=== PATIENT | female | born 1960 | race Caucasian/White ===

== ENCOUNTER 2019-08-26 08:52 | Inpatient (IN) ==
[2019-08-26] MEDS: SODIUM CHLORIDE 0.9% 1,000 ML IV SCH ×2 (11:24→20:06)
[2019-08-26] MEDS ORDERED: ENOXAPARIN 40 MG/0.4 ML SYRINGE SUBCUT SCH (11:30)
[2019-08-26] MEDS ORDERED: SODIUM CHLORIDE 0.9% 1,000 ML IV ONE (11:39)
[2019-08-26 11:48] LABS: Basophils # 0.1 10*3/uL (0.0-0.2); Basophils % 0.2 % (0.0-0.8); Hematocrit 32.5 VOL% (35.7-47.0); Hemoglobin 10.8 GM/DL (12.0-16.0); Immature Granulocytes % 1.7 %; Immature Granulocytes Absolute 0.41 #; Lymphocytes # 0.5 10*3/uL (1.4-4.0); Lymphocytes % 2.2 % (21.3-54.2); Mean Corpuscular HGB Conc 33.2 GM/DL (32-36); Mean Corpuscular Volume 92.9 FL (87-102); Mean Platelet Volume 11.3 FL (9.6-12.0); Monocytes % 5.6 % (1.7-12.7); Neutrophils % 90.3 % (38.7-73.9); Platelet Count 155 T/CUMM (130-400); Red Cell Distribution Width 12.4 % (9.3-17.3); White Blood Count 24.3 T/CUMM (4-12)
[2019-08-26 12:08] LABS: Band Neutrophils 9 % (0-10); Lymphocytes 5 % (20-55); Platelet Estimate Adequate; Polychromasia Slight; Segmented Neutrophils 83 % (50-85); Total Cells Counted 100
[2019-08-26 12:21] LABS: Calcium 7.8 MG/DL (8.5-10.1)
[2019-08-26] MEDS ORDERED: NOREPINEPHRINE 8 MG in SODIUM CHLORIDE 0.9% 242 ML IV PRN (14:32)
[2019-08-26] MEDS ORDERED: GENTAMICIN INJ 160 MG in SODIUM CHLORIDE 0.9% 100 ML IV ONE (14:54)
[2019-08-26] MEDS: ACETAMINOPHEN 325 MG TABLET PO PRN (20:04)
[2019-08-26] MEDS: ONDANSETRON 4 MG/2 ML VIAL IV PRN (20:32)
[2019-08-27] MEDS: SODIUM CHLORIDE 0.9% 1,000 ML IV SCH ×3 (03:11→20:19)
[2019-08-27 04:06] LABS: Basophils % 0.2 % (0.0-0.8); Eosinophils # 0.1 10*3/uL (0.0-0.87); Eosinophils % 0.3 % (0.00-10.9); Hematocrit 32.9 VOL% (35.7-47.0); Hemoglobin 10.8 GM/DL (12.0-16.0); Immature Granulocytes % 0.9 %; Immature Granulocytes Absolute 0.16 #; Lymphocytes % 5.8 % (21.3-54.2); Mean Corpuscular HGB Conc 32.8 GM/DL (32-36); Mean Corpuscular Volume 93.7 FL (87-102); Mean Platelet Volume 12.2 FL (9.6-12.0); Monocytes % 6.1 % (1.7-12.7); Neutrophils % 86.7 % (38.7-73.9); Platelet Count 123 T/CUMM (130-400); Red Blood Count 3.51 MC/CUMM (3.8-5.5); Red Cell Distribution Width 12.6 % (9.3-17.3); White Blood Count 17.9 T/CUMM (4-12)
[2019-08-27 04:26] LABS: Calcium 7.7 MG/DL (8.5-10.1); Osmolality,Calculated 289.8 MOS/KG (273-304)
[2019-08-27] MEDS: cefTRIAXone 1,000 MG in SYRINGE 1 EACH IV SCH (06:20)
[2019-08-27] MEDS: ONDANSETRON 4 MG/2 ML VIAL IV PRN ×3 (07:08→22:57)
[2019-08-27] MEDS: MORPHINE 4 MG/1 ML VIAL IV PRN ×3 (07:26→22:57)
[2019-08-27] MEDS: METOCLOPRAMIDE 10 MG/2 ML VIAL IV PRN ×2 (07:35→17:10)
[2019-08-27] MEDS: ENOXAPARIN 40 MG/0.4 ML SYRINGE SUBCUT SCH (10:02)
[2019-08-27] MEDS ORDERED: KETOROLAC 30 MG/1 ML VIAL IV ONE (11:19)
[2019-08-28] MEDS: SODIUM CHLORIDE 0.9% 1,000 ML IV SCH ×3 (04:29→23:32)
[2019-08-28] MEDS: ACETAMINOPHEN 325 MG TABLET PO PRN ×2 (04:29→13:18)
[2019-08-28] MEDS: cefTRIAXone 1,000 MG in SYRINGE 1 EACH IV SCH (06:39)
[2019-08-28 06:43] LABS: Calcium 8.2 MG/DL (8.5-10.1); Osmolality,Calculated 282.4 MOS/KG (273-304)
[2019-08-28] MEDS: ENOXAPARIN 40 MG/0.4 ML SYRINGE SUBCUT SCH (08:24)
[2019-08-28] MEDS: MORPHINE 4 MG/1 ML VIAL IV PRN (14:19)
[2019-08-29 04:52] LABS: Basophils % 0.3 % (0.0-0.8); Eosinophils # 0.1 10*3/uL (0.0-0.87); Eosinophils % 0.5 % (0.00-10.9); Hematocrit 29.2 VOL% (35.7-47.0); Hemoglobin 9.9 GM/DL (12.0-16.0); Immature Granulocytes % 1.1 %; Immature Granulocytes Absolute 0.12 #; Lymphocytes # 0.9 10*3/uL (1.4-4.0); Lymphocytes % 8.6 % (21.3-54.2); Mean Corpuscular HGB Conc 33.9 GM/DL (32-36); Mean Corpuscular Volume 89.8 FL (87-102); Mean Platelet Volume 12.3 FL (9.6-12.0); Monocytes % 7.5 % (1.7-12.7); Platelet Count 121 T/CUMM (130-400); Red Blood Count 3.25 MC/CUMM (3.8-5.5); Red Cell Distribution Width 11.9 % (9.3-17.3); White Blood Count 10.9 T/CUMM (4-12)
[2019-08-29 05:16] LABS: Calcium 8.2 MG/DL (8.5-10.1); Osmolality,Calculated 277.4 MOS/KG (273-304)
[2019-08-29] MEDS: cefTRIAXone 1,000 MG in SYRINGE 1 EACH IV SCH (06:46)
[2019-08-29] MEDS: SODIUM CHLORIDE 0.9% 1,000 ML IV SCH ×3 (07:16→23:13)
[2019-08-29] MEDS ORDERED: MAGNESIUM SULF RIDER 4 GM in PREMIX 1 EACH IV ONE (07:45)
[2019-08-29] MEDS ORDERED: BUTALBITAL/ACETAMIN/CAFFEINE 50-325-40 MG TABLET PO ONE (08:46)
[2019-08-29] MEDS: ENOXAPARIN 40 MG/0.4 ML SYRINGE SUBCUT SCH (09:26)
[2019-08-29] MEDS: ACETAMINOPHEN 325 MG TABLET PO PRN (16:02)
[2019-08-29] MEDS: cefTRIAXone 2,000 MG in SYRINGE 1 EACH IV SCH (18:07)
[2019-08-30] MEDS: SODIUM CHLORIDE 0.9% 1,000 ML IV SCH (05:49)
[2019-08-30 09:52] LABS: Calcium 7.9 MG/DL (8.5-10.1); Osmolality,Calculated 271.7 MOS/KG (273-304)
[2019-08-30] MEDS: cefTRIAXone 2,000 MG in SYRINGE 1 EACH IV SCH (19:21)
[2019-08-31] MEDS: POTASSIUM CHLORIDE RIDER 10 MEQ in PREMIX 1 EACH IV PRN ×5 (04:50→13:34)
[2019-08-31 06:52] LABS: Basophils % 0.4 % (0.0-0.8); Eosinophils # 0.2 10*3/uL (0.0-0.87); Eosinophils % 1.6 % (0.00-10.9); Hematocrit 30.6 VOL% (35.7-47.0); Hemoglobin 10.6 GM/DL (12.0-16.0); Immature Granulocytes % 3.3 %; Immature Granulocytes Absolute 0.34 #; Lymphocytes # 1.7 10*3/uL (1.4-4.0); Lymphocytes % 16.6 % (21.3-54.2); Mean Corpuscular HGB Conc 34.6 GM/DL (32-36); Mean Corpuscular Volume 88.4 FL (87-102); Mean Platelet Volume 11.4 FL (9.6-12.0); Monocytes % 9.5 % (1.7-12.7); Neutrophils % 68.6 % (38.7-73.9); Platelet Count 210 T/CUMM (130-400); Red Blood Count 3.46 MC/CUMM (3.8-5.5); Red Cell Distribution Width 11.9 % (9.3-17.3); White Blood Count 10.4 T/CUMM (4-12)
[2019-08-31 07:19] LABS: Platelet Estimate Normal
[2019-08-31 07:20] LABS: Anisocytosis 1+
[2019-08-31 07:22] LABS: Giant Platelets Few
[2019-08-31] MEDS ORDERED: POTASSIUM CHLORIDE 20 MEQ PACK PO ONE (07:58)
[2019-08-31] MEDS ORDERED: MAGNESIUM SULF RIDER 4 GM in PREMIX 1 EACH IV ONE (07:59)
[2019-08-31] MEDS: cefTRIAXone 2,000 MG in SYRINGE 1 EACH IV SCH (20:43)
[2019-09-01 05:52] LABS: Basophils # 0.1 10*3/uL (0.0-0.2); Basophils % 0.6 % (0.0-0.8); Eosinophils # 0.2 10*3/uL (0.0-0.87); Eosinophils % 2.4 % (0.00-10.9); Hematocrit 32.2 VOL% (35.7-47.0); Immature Granulocytes % 3.4 %; Immature Granulocytes Absolute 0.31 #; Lymphocytes # 2.1 10*3/uL (1.4-4.0); Lymphocytes % 23.4 % (21.3-54.2); Mean Corpuscular HGB Conc 34.2 GM/DL (32-36); Mean Corpuscular Volume 89.2 FL (87-102); Mean Platelet Volume 11.6 FL (9.6-12.0); Monocytes % 9.2 % (1.7-12.7); Platelet Count 245 T/CUMM (130-400); Red Blood Count 3.61 MC/CUMM (3.8-5.5); Red Cell Distribution Width 12.1 % (9.3-17.3)
[2019-09-01 06:43] LABS: Eosinophils 3 % (0-10); Lymphocytes 22 % (20-55); Platelet Estimate Normal; Segmented Neutrophils 69 % (50-85); Total Cells Counted 100
[2019-09-01 10:00] VITALS: BP 111/73
[2019-09-01] MEDS: cefTRIAXone 2,000 MG in SYRINGE 1 EACH IV SCH (10:57)
== END 2019-09-01 14:30 | disposition home health service (06) | DRG 690 ==
LOC: N.CC 10:41 → SUATTDRO 10:41 → N.5E 08-27 13:44
PROVIDERS: ADMIT Internal Medicine; ATTEND Internal Medicine